=== PATIENT | female | born 2000 | race Caucasian/White ===

== ENCOUNTER 2025-03-02 18:07 | Emergency (ER) | payer BC ==
[~2025-03-02] VITALS: Ht 154.9 cm; Wt 84.2 kg
[2025-03-02 18:10] VITALS: BP 132/91; PULSE 89; RESP 16; O2SAT 98
[2025-03-02 18:32] LABS: STREP A SCREEN NEGATIVE (Neg)
--- NOTE | 2025-03-02 18:47 | Physician Documentation ---
History of Present Illness ~ Chief Complaint: Sore Throat Stated Complaint: SORE THROAT Time Seen by MD: 18:32 [facility] 24-year-old female who presents to the ED with a complaint of a sore throat for the last several days with increasing severity. Denies any cough reports pain w ith swallowing. States she has a history of strep throat.. Denies any drug allergy, reports being otherwise healthy Medication Reconciliation Allergies: Coded Allergies: No Known Allergies (Unverified , 03/02/25) Review of Systems All Other Systems at this time: Reviewed and Negative ROS As stated above in the HPI, otherwise all systems are reviewed and negative. Physical Exam Vital Signs: Temperature: 98.5, Source: Temporal, Heart Rate: 89, Respiratory Rate: 16, BP: 132/91, Pulse Oximetry: 98, Weight: 84.250 Physical Exam General: Alert, no apparent distress. HEENT: PERRL, EOMI, no injection, moist mucous membranes. Inflamed pharynx, no exudate Neck: Full range of motion. Psychiatric: Normal mood and affect. Skin: Normal color, warm and dry. No edema, no ecchymosis. Progress Results/Orders Results/Orders Vital Signs 03/02/25 18:10 Temp 98.5 Pulse 89 Resp 16 B/P (MAP) 132/91 Pulse Ox 98 Laboratory Tests Test 03/02/25 18:13 Group A Streptococcus Rapid Negative Medical Decision Making Findings This patient is likely presenting with a viral pharyngitis has her strep throat culture came back negative. I advised her to gargle salt water and take ibuprofen along with staying hydrated. Throat Diff Dx: Considerations: Include: AIDS, Epiglottitis, Esophageal candidiasis, Hand foot mouth disease, Herpangina, Herpetic stomatitis, Herpes simplex, Infection mononucleosis, Immunodeficiency, Quentin's angina, Peritonsil lar abscess, Peritonsillar cellulitis, Pharyngitis-diphtheria, Pharyngitis- strepococcal, Pharyngitis-viral, Thrush, URI, Other Departure Disposition: 01 HOME / SELF CARE / HOMELESS Impression: Primary Impression: Irritation of pharynx Additional Impression: Acute pharyngitis Discharge Instructions: Pharyngitis, Sore Throat Additional Instructions: rest, take ibuprofen as directed and in stay adequately hydrated. Please return to the ED if you have any worsening symptoms Referrals: NO PRIMARY CARE PROVIDER (PCP) Signature Scribe Signature: s Attestation: Scribed for Saray Curran Disintegrator by Saray Dyson NP . 03/02/25 18:47 SARAY CURRAN NP Mar 02, 2025 18:47
[2025-03-02 18:49] VITALS: TEMP 98.5
== END 2025-03-02 18:52 | disposition home or self-care (01) ==
LOC: ER 18:08
DX: J39.2 Other diseases of pharynx (principal); J02.9 Acute pharyngitis, unspecified
CPT/HCPCS: 87081; 87880; 99283